=== PATIENT | female | born 1960 | race Caucasian/White ===

== ENCOUNTER 2020-07-30 21:30 | Emergency (ER) | payer MEDICARE, OTHER ==
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
[2020-07-30 23:07] LABS: BLOOD UREA NITROGEN,BUN 17 mg/dL (7.0-18.0); CARBON DIOXIDE,CO2 24.7 mmol/L (21.0-32.0); CHLORIDE,CL 104 mmol/L (98-107); GLUCOSE RANDOM 98 mg/dL (74-106); POTASSIUM,K 5.1 mmol/L (3.5-5.1); SODIUM,NA 142 mmol/L (136-145)
[2020-07-30] MEDS ORDERED: Bacitracin Oint 28.35 GM Tube ONE (23:08)
[2020-07-30] MEDS ORDERED: Bacitracin Oint 1 GM U/D Packet TOP ONE (23:14)
== END 2020-07-30 23:35 | disposition home or self-care (01) ==
LOC: MW.ED 21:30
DX: S00.83XA Contusion of other part of head, initial encounter (principal); Y00.XXXA Assault by blunt object, initial encounter
CPT/HCPCS: 36415; 70450; 70486; 72125; 80048; 85025; 85610; 85730; 99284; A9270